=== PATIENT | male | born 1980 | race Hispanic/Latino ===

== ENCOUNTER 2023-07-05 09:18 | Outpatient (RCR) | payer MEDICAID, SELFPAY ==
--- NOTE | 2023-07-05 09:36 | PT.OIERPT ---
PT OP Initial Eval Date of Service: 07/05/23 Patient Information Visit Reasons: Low Back Pain Medical Diagnosis: M54.50 Treatment Dx #1: LBP Start of Care: 07/05/23 Date of Onset: 2 months ago Initial Assessment Subjective: Pt is 42 yr old male who c/o LBP x2 months and he went to ER at [facility] because he couldn't move. He was in a W/C x4 days after that. Increased LBP when he shifts in bed, and with bending.
== END 2023-07-09 23:59 | disposition home or self-care (01) ==
LOC: CPTX 09:18
PROVIDERS: PCP Family Medicine; Referring Provider Family Medicine; Visit Provider Family Medicine
DX: Z53.8 Procedure and treatment not carried out for other reasons (principal)